=== PATIENT | female | born 1985 | race Caucasian/White ===

== ENCOUNTER 2022-07-05 12:56 | Outpatient (CLI) | payer BC, SELFPAY ==
--- NOTE | 2022-07-05 13:00 | CRLHL7_ITS ---
For Patients: As a result of the Century Cures Act, medical imaging exams and procedure reports are released immediately into your electronic medical record. You may view this report before your referring provider. If you have questions, please contact your health care provider. Indication: CHRONIC SINUSITIS Technique: Performed without IV contrast Comparison: None available Findings: Frontal sinuses: Clear. Ethmoid sinuses: Clear. Maxillary sinuses: 1.6 cm mucous retention cyst left maxillary sinus. Other smaller mucous retention cysts are noted bilaterally. There is mucosal thickening within the left maxillary sinus and a small amount of mucosal thickening within the right maxillary sinus. The maxillary sinus drainage pathways are patent on both sides. Sphenoid sinuses: Clear, including both sphenoethmoidal recesses. Nasal Cavity: Nasal septum is midline. Small keith bullosa right middle turbinate. No polyps. No TMJ abnormalities identified. The visualized portions of the orbits, intracranial contents and upper soft tissue neck are grossly negative. Impression: 1. Bilateral maxillary sinus disease, left greater than right. 2. Midline nasal septum. Please note that all CT scans at this facility use dose modulation, iterative reconstruction, and/or weight-based dosing when appropriate to reduce radiation dose to as low as reasonably achievable. Dictated by Karlos Woods MD @ 07/05/2022 2:19:53 PM (Electronically Signed)
== END 2022-07-05 12:57 | disposition home or self-care (01) ==
LOC: CT 12:58
PROVIDERS: Visit Provider Otolaryngology
DX: J32.9 Chronic sinusitis, unspecified (principal); J32.0 Chronic maxillary sinusitis; J34.2 Deviated nasal septum
CPT/HCPCS: 70486